=== PATIENT | female | born 2000 | race Caucasian/White ===

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

== ENCOUNTER 2023-05-14 12:23 | Emergency (ER) | payer OTHER ==
[~2023-05-14] VITALS: Ht 167.6 cm; Wt 133.8 kg
[2023-05-14 12:41] VITALS: BP 120/64; PULSE 89; RESP 20; TEMP 98; O2SAT 98
[2023-05-14] MEDS ORDERED: KETOROLAC 30 MG/ML VIAL IM SCH (13:20)
[2023-05-14] MEDS ORDERED: CYCL-711 PO (14:49)
[2023-05-14] MEDS ORDERED: LID5T TP (14:49)
[2023-05-14] MEDS ORDERED: IBUP-2218 PO (14:49)
[2023-05-14 14:58] VITALS: BP 120/60; PULSE 82; RESP 20; TEMP 98; O2SAT 99
== END 2023-05-14 14:58 | disposition home or self-care (01) ==
LOC: MED 12:23
DX: M54.50 Low back pain, unspecified (principal); Z79.899 Other long term (current) drug therapy
CPT/HCPCS: 81002; 81025; 96372; 99283; J1885